=== PATIENT | female | born 1985 | race Two or more races ===

== ENCOUNTER 2017-08-13 21:36 | Emergency (ER) | payer MEDICAID ==
[~2017-08-13] VITALS: Ht 154.9 cm; Wt 78.7 kg
[2017-08-13 21:45] VITALS: BP 126/88
== END 2017-08-13 22:37 | disposition home or self-care (01) ==
LOC: ED 22:28
DX: R00.2 Palpitations (principal); I10 Essential (primary) hypertension
CPT/HCPCS: 93005; 99283

== ENCOUNTER 2019-11-09 13:33 | Emergency (ER) | payer SELFPAY ==
[~2019-11-09] VITALS: Ht 157.5 cm; Wt 82.2 kg
[2019-11-09] MEDS ORDERED: ONDANSETRON 2MG/ML, 2ML ONE (14:23)
[2019-11-09] MEDS ORDERED: KETOROLAC 30 MG/1 ML ONE (14:23)
[2019-11-09] MEDS ORDERED: KETOROLAC 30 MG/1 ML IVPush ONE (14:30)
[2019-11-09] MEDS ORDERED: KETOROLAC 30 MG/1 ML IM ONE (14:30)
[2019-11-09] MEDS ORDERED: ONDANSETRON 2MG/ML, 2ML IVPush ONE (14:30)
--- NOTE | 2019-11-09 14:30 | NUR ---
IV STARTED, LABS DRAWN, PT MEDICATED PER ORDERS.
--- NOTE | 2019-11-09 14:35 | NUR ---
PT AMBULATED TO BR WITHOUT DIFFICULTY. INSTRUCTED ON CLEAN CATCH URINE SAMPLE.
[2019-11-09 14:51] LABS: BASOPHILS # (AUTO) 0.07 x10^3/uL (0-0.1); BASOPHILS % (AUTO) 1 % (0-1); EOSINOPHILS # (AUTO) 0.14 x10^3/uL (0-0.4); EOSINOPHILS % (AUTO) 1 % (1-7); LYMPHOCYTES # (AUTO) 3.64 x10^3/uL (1-3.4); LYMPHOCYTES % (AUTO) 31 % (22-44); MD NO; MEAN CORPUSCULAR HEMOGLOBIN 28.6 pg (27.0-34.8); MEAN CORPUSCULAR HGB CONC 33.1 g/dL (32.4-35.8); MEAN CORPUSCULAR VOLUME 86.3 fL (80-100); MEAN PLATELET VOLUME 7.8 fL (7.4-10.4); MONOCYTES # (AUTO) 0.61 x10^3/uL (0.2-0.8); MONOCYTES % (AUTO) 5 % (2-9); NEUTROPHILS # (AUTO) 7.39 x10^3/uL (1.8-6.8); NEUTROPHILS % (AUTO) 62 % (42-75); PLATELET COUNT 358 x10^3/uL (130-400); RED BLOOD COUNT 4.55 x10^6/uL (3.82-5.3); RED CELL DISTRIBUTION WIDTH 13.9 % (9.6-15.2)
[2019-11-09 14:56] LABS: ALBUMIN 3.5 g/dL (3.4-5.0); ANION GAP 5 mmol/L (5-15); CALCIUM 8.8 mg/dL (8.5-10.1); CHLORIDE 108 mmol/L (98-107); CREATININE 0.84 mg/dL (0.55-1.02)
[2019-11-09 15:18] LABS: MICROSCOPIC NOT IND
--- NOTE | 2019-11-09 15:44 | NUR ---
PT TO XR VIA RODGER.
--- NOTE | 2019-11-09 16:06 | NUR ---
ERP AT FOR RECHECK.
[2019-11-09 16:15] VITALS: BP 125/80
--- NOTE | 2019-11-09 16:15 | NUR ---
D/C INSTRUCTIONS, MEDS & F/U APPT RV'WD WITH PT, SHE VERBALIZES UNDERSTANDING. RX GIVEN X1. INSTRUCTED PT TO RETURN TO ED IN A FEW DAYS IF CHEST WALL PAIN PERSISTS. WORK NOTE PROVIDED. PT AMBULATED OUT OF ED WITH WITHOUT DIFFICULTY.
== END 2019-11-09 16:15 | disposition home or self-care (01) ==
LOC: ED 14:21
DX: S20.212A Contusion of left front wall of thorax, initial encounter (principal); R07.89 Other chest pain; I10 Essential (primary) hypertension; R10.9 Unspecified abdominal pain; R11.0 Nausea; X58.XXXA Exposure to other specified factors, initial encounter; Y93.89 Activity, other specified; Y92.89 Other specified places as the place of occurrence of the external cause; Y99.8 Other external cause status
CPT/HCPCS: 36415; 71101; 80048; 81003; 82040; 84703; 85025; 96374; 96375; 99284; J1885; J2405